=== PATIENT | male | born 1945 | race Caucasian/White ===

== ENCOUNTER 2019-01-09 06:02 | Emergency (ER) | payer OTHER ==
--- NOTE | 2019-01-09 06:05 | ER Report ---
History and Physical Time Seen By MD: 06:02 (NAI MERCER DO) HPI/ROS CHIEF COMPLAINT: Left flank pain HISTORY OF PRESENT ILLNESS: 74-year-old male purdy from [place] visiting [place] for a weekend. He has a known history of kidney stones. He has plans to see his urologist for retained stones that will undergo lithotripsy. Patient developed pain that began around midnight in his left flank with severe nausea but no vomiting. He describes waves of severe pain. Patient denies fever or chills. Patient notes 1 bout of loose stool. REVIEW OF SYSTEMS: Respiratory: No cough, no dyspnea. Cardiovascular: No chest pain, no palpitations. Gastrointestinal: As above Musculoskeletal: As above (NAI MERCER DO) Allergies: Coded Allergies: shellfish derived (Verified Allergy, Unknown, 01/09/19) Home Meds Active Scripts Granisetron Hcl (GRANISETRON HCL) 1 Mg Tablet, 1 MG PO Q6H, #14 Prov:SANDRA HORNER MD 01/09/19 Ketorolac Tromethamine (KETOROLAC TROMETHAMINE) 10 Mg Tab, 10 MG PO Q6H PRN for PAIN, #12 TAB 0 Refills Prov:SANDRA HORNER MD 01/09/19 Oxycodone Hcl/Acetaminophen (PERCOCET 5-325 MG TABLET) 1 Each Tablet, 1 EACH PO Q6H PRN for PAIN, #12 TAB 0 Refills Prov:SANDRA HORNER MD 01/09/19 Reported Medications Tamsulosin Hcl (FLOMAX) 0.4 Mg Cap.er.24h, 0.4 MG PO DAILY, CAP 01/09/19 Lisinopril (LISINOPRIL) 20 Mg Tablet, 20 MG PO QDAY, TAB 01/09/19 Reviewed Nurses Notes: Yes Old Medical Records Reviewed: Yes (NAI MERCER DO) Constitutional Vital Sign - Last 24 Hours 01/09/19 01/09/19 01/09/19 01/09/19 06:07 06:10 06:30 06:32 Temp 98.0 Pulse 58 62 Resp 18 B/P (MAP) 154/89 154/89 (110) 160/91 (114) Pulse Ox 88 94 O2 Delivery Room Air (SANDRA HORNER MD) Physical Exam General Appearance: The patient is alert, has no immediate need for airway protection and no current signs of toxicity. Moderate distress, slightly pale appearing, skin warm and dry, vital signs stable Eyes: Pupils equal and round no injection. Respiratory: Chest is non tender, lungs are clear to auscultation. Cardiac: regular rate and rhythm Gastrointestinal: Abdomen is soft and non tender, no masses, bowel sounds normal. Positive left CVA tenderness Musculoskeletal: Neck: Neck is supple and non tender. Extremities have full range of motion and are non tender. Skin: No rashes or lesions. DIFFERENTIAL DIAGNOSIS: After history and physical exam differential diagnosis was considered for flank pain including but not limited to musculoskeletal causes, kidney stone, pyelonephritis, shingles, and intra-abdominal causes such as diverticulitis and appendicitis. (NAI MERCER DO) Medical Decision Making Data Points Result Diagram: 01/09/19 0620 01/09/19 0620 Laboratory Hematology Test 01/09/19 06:05 01/09/19 06:20 Urine Color Yellow Urine Clarity Slightly-cloudy Urine pH 6.0 pH (4.8-9.5) Urine Specific [place] 1.021 Urine Protein Negative mg/dL (NEGATIVE) Urine Glucose (UA) Negative mg/dL (NEGATIVE) Urine Ketones Negative mg/dL (NEGATIVE) Urine Blood Moderate (NEGATIVE) Urine Nitrite Negative (NEGATIVE) Urine Bilirubin Negative (NEGATIVE) Urine Urobilinogen Negative mg/dL (0.2-1.9) Urine Leukocyte Esterase Negative (NEGATIVE) Urine RBC 85 /HPF (0-2/HPF) Urine WBC 1 /HPF (0-5/HPF) Urine Squamous Epithelial Cells Few /LPF (</=FEW) Urine Renal Epithelial Cells Few /LPF (NONE-FEW) Urine Bacteria Negative /HPF (NONE-FEW) Urine Mucus Few /HPF (NONE-FEW) Red Blood Count 5.15 M/uL (4.00-5.60) Mean Corpuscular Volume 80.7 fL (80.0-96.0) Mean Corpuscular Hemoglobin 26.6 pg (26.0-33.0) Mean Corpuscular Hemoglobin Concent 33.0 g/dL (32.0-36.0) Red Cell Distribution Width 15.4 % (11.5-14.5) Mean Platelet Volume 7.5 fL (7.2-11.1) Neutrophils (%) (Auto) 88.0 % (39.4-72.5) Lymphocytes (%) (Auto) 5.3 % (17.6-49.6) Monocytes (%) (Auto) 6.2 % (4.1-12.4) Eosinophils (%) (Auto) 0.2 % (0.4-6.7) Basophils (%) (Auto) 0.3 % (0.3-1.4) Nucleated RBC Relative Count (auto) 0.0 /100WBC Neutrophils # (Auto) 10.2 K/uL (2.0-7.4) Lymphocytes # (Auto) 0.6 K/uL (1.3-3.6) Monocytes # (Auto) 0.7 K/uL (0.3-1.0) Eosinophils # (Auto) 0.0 K/uL (0.0-0.5) Basophils # (Auto) 0.0 K/uL (0.0-0.1) Nucleated RBC Absolute Count (auto) 0.00 K/uL Sodium Level 137 mmol/L (137-145) Potassium Level 4.1 mmol/L (3.5-5.0) Chloride Level 104 mmol/L (98-107) Carbon Dioxide Level 23 mmol/L (22-30) Blood Urea Nitrogen 20 mg/dl (9-21) Creatinine 1.40 mg/dl (0.66-1.25) Glomerular Filtration Rate Calc 49.5 Random Glucose 134 mg/dl (75-110) Calcium Level 9.2 mg/dl (8.4-10.2) Total Bilirubin 0.5 mg/dl (0.2-1.3) Aspartate Amino Transf (AST/SGOT) 36 U/L (0-35) Alanine Aminotransferase (ALT/SGPT) 48 U/L (0-56) Alkaline Phosphatase 74 U/L (0-126) Total Protein 7.3 g/dl (6.3-8.2) Albumin 4.2 g/dl (3.5-5.0) Amylase Level 82 U/L (0-110) Lipase 83 U/L (23-300) Chemistry Test 01/09/19 06:05 01/09/19 06:20 Urine Color Yellow Urine Clarity Slightly-cloudy Urine pH 6.0 pH (4.8-9.5) Urine Specific [place] 1.021 Urine Protein Negative mg/dL (NEGATIVE) Urine Glucose (UA) Negative mg/dL (NEGATIVE) Urine Ketones Negative mg/dL (NEGATIVE) Urine Blood Moderate (NEGATIVE) Urine Nitrite Negative (NEGATIVE) Urine Bilirubin Negative (NEGATIVE) Urine Urobilinogen Negative mg/dL (0.2-1.9) Urine Leukocyte Esterase Negative (NEGATIVE) Urine RBC 85 /HPF (0-2/HPF) Urine WBC 1 /HPF (0-5/HPF) Urine Squamous Epithelial Cells Few /LPF (</=FEW) Urine Renal Epithelial Cells Few /LPF (NONE-FEW) Urine Bacteria Negative /HPF (NONE-FEW) Urine Mucus Few /HPF (NONE-FEW) White Blood Count 11.6 k/uL (4.5-11.0) Red Blood Count 5.15 M/uL (4.00-5.60) Hemoglobin 13.7 g/dL (14.0-18.0) Hematocrit 41.5 % (42.0-52.0) Mean Corpuscular Volume 80.7 fL (80.0-96.0) Mean Corpuscular Hemoglobin 26.6 pg (26.0-33.0) Mean Corpuscular Hemoglobin Concent 33.0 g/dL (32.0-36.0) Red Cell Distribution Width 15.4 % (11.5-14.5) Platelet Count 194 K/uL (150-450) Mean Platelet Volume 7.5 fL (7.2-11.1) Neutrophils (%) (Auto) 88.0 % (39.4-72.5) Lymphocytes (%) (Auto) 5.3 % (17.6-49.6) Monocytes (%) (Auto) 6.2 % (4.1-12.4) Eosinophils (%) (Auto) 0.2 % (0.4-6.7) Basophils (%) (Auto) 0.3 % (0.3-1.4) Nucleated RBC Relative Count (auto) 0.0 /100WBC Neutrophils # (Auto) 10.2 K/uL (2.0-7.4) Lymphocytes # (Auto) 0.6 K/uL (1.3-3.6) Monocytes # (Auto) 0.7 K/uL (0.3-1.0) Eosinophils # (Auto) 0.0 K/uL (0.0-0.5) Basophils # (Auto) 0.0 K/uL (0.0-0.1) Nucleated RBC Absolute Count (auto) 0.00 K/uL Glomerular Filtration Rate Calc 49.5 Calcium Level 9.2 mg/dl (8.4-10.2) Total Bilirubin 0.5 mg/dl (0.2-1.3) Aspartate Amino Transf (AST/SGOT) 36 U/L (0-35) Alanine Aminotransferase (ALT/SGPT) 48 U/L (0-56) Alkaline Phosphatase 74 U/L (0-126) Total Protein 7.3 g/dl (6.3-8.2) Albumin 4.2 g/dl (3.5-5.0) Amylase Level 82 U/L (0-110) Lipase 83 U/L (23-300) Urinalysis Test 01/09/19 06:05 Urine Color Yellow Urine Clarity Slightly-cloudy Urine pH 6.0 pH (4.8-9.5) Urine Specific [place] 1.021 Urine Protein Negative mg/dL (NEGATIVE) Urine Glucose (UA) Negative mg/dL (NEGATIVE) Urine Ketones Negative mg/dL (NEGATIVE) Urine Blood Moderate (NEGATIVE) Urine Nitrite Negative (NEGATIVE) Urine Bilirubin Negative (NEGATIVE) Urine Urobilinogen Negative mg/dL (0.2-1.9) Urine Leukocyte Esterase Negative (NEGATIVE) Urine RBC 85 /HPF (0-2/HPF) Urine WBC 1 /HPF (0-5/HPF) Urine Squamous Epithelial Cells Few /LPF (</=FEW) Urine Renal Epithelial Cells Few /LPF (NONE-FEW) Urine Bacteria Negative /HPF (NONE-FEW) Urine Mucus Few /HPF (NONE-FEW) (SANDRA HORNER MD) EKG/Imaging Imaging Results: CT scan of the abdomen and pelvis without contrast was obtained. The results of the study are CT of the abdomen and pelvis without contrast: Indication: Left flank pain. Technique: Helical CT was performed through the abdomen and pelvis without contrast. Multiplanar reconstructions are reviewed. One of the following dose optimization techniques was utilized in the performance of this exam: Automated exposure control; adjustment of the mA and/or kV according to the patient's size; or use of an iterative reconstruction technique. Specific details can be referenced in the facility's radiology CT exam operational policy. Comparison: None available. Lower lung godinez: No parenchymal or pleural abnormality is identified. Liver: Normal in size, shape, and density. Gallbladder/biliary tree: Multiple small opaque calculi are present in the lumen of the gallbladder. The gallbladder is not distended. The bile ducts are not dilated. Pancreas: Normal in size, shape, and density. Spleen: Normal in size, shape, and density. Adrenal glands: Within normal limits. Kidneys/urinary bladder: There is an obstructing calculus at the left ureterovesical junction, measuring approximately 11 mm in maximum dimension. Multiple additional tiny calculi are present in the distal left ureter. There is moderate dilatation of the left ureter and intrarenal collecting structures. At least one small nonobstructing calculus is present in the lower pole of the left kidney. The left kidney appears edematous with mild perinephric fluid. There are no signs of right intrarenal or ureteral calculi. There appear to be a few tiny cysts in the right kidney. There is a large number of calculi within the lumen of the bladder, measuring up to 13 mm in size. The bladder is otherwise unremarkable. Intestinal structures: There is mild diverticulosis in the distal colon. There are no signs of diverticulitis or obstruction. The intestinal structures are otherwise unremarkable, as visualized. Pelvis: The prostate appears enlarged, measuring approximately 6.0 cm in maximum dimension. There is a small, uncomplicated left inguinal hernia. Aorta and vascular structures: Within normal limits. Ascites or fluid collections: None seen. Skeletal structures: There are mild degenerative changes in the spine. No acute skeletal deformity is identified. Impression: There is an 11 mm obstructing calculus at the left ureterovesical junction. A large number of additional calculi are present in the distal left ureter and bladder lumen. The study was read by the radiologist. I viewed the images myself on the PACS system. (NAI MERCER DO) ED Course/Re-evaluation Clinical Indication for ER IV: Hydration, IV Access (NAI MERCER DO) ED Course 11 mm ureteral calculi. Still urinating. Pain controlled. Able to take PO. No evidence of infection. No fever/chills. Noted is some renal insufficiency, and I discussed this with the patient. I will discharge him with Percocet, Toradol, an d Zofran. He will follow up on Thursday with his surgeon in [place] Decision to Disposition Date: Jan 09, 2019 Decision to Disposition Time: 08:28 (SANDRA HORNER MD) Depart Departure Latest Vital Signs Vital Signs Date Time Temp Pulse Resp B/P (MAP) Pulse Ox O2 Delivery O2 Flow Rate FiO2 01/09/19 06:32 62 94 01/09/19 06:30 160/91 (114) 01/09/19 06:07 98.0 18 Room Air (SANDRA HORNER MD) Impression: Primary Impression: Ureteral calculus Condition: Improved Disposition: HOME OR SELF-CARE New Scripts Granisetron Hcl (GRANISETRON HCL) 1 Mg Tablet 1 MG PO Q6H, #14 Prov: SANDRA HORNER MD 01/09/19 Ketorolac Tromethamine (KETOROLAC TROMETHAMINE) 10 Mg Tab 10 MG PO Q6H PRN for PAIN, #12 TAB 0 Refills Prov: SANDRA HORNER MD 01/09/19 Oxycodone Hcl/Acetaminophen (PERCOCET 5-325 MG TABLET) 1 Each Tablet 1 EACH PO Q6H PRN for PAIN, #12 TAB 0 Refills Prov: SANDRA HORNER MD 01/09/19 Patient Instructions: Ureteral Stones (ED) Additional Instructions: DRINK 8 GLASSES OF WATER PER DAY ESPECIALLY WHILE TAKING NSAIDS FOR PAIN. NAI MERCER DO Jan 09, 2019 06:05 SANDRA HORNER MD Jan 09, 2019 08:34
[2019-01-09] MEDS ORDERED: NS(*) 0.9% 1000 ML BAG 1,000 ML IV ONE (06:13)
[2019-01-09] MEDS ORDERED: ONDANSETRON 4 MG/2 ML VIAL IVP ONE (06:15)
[2019-01-09] MEDS ORDERED: KETOROLAC 30 MG/ML VIAL IVP ONE (06:15)
[2019-01-09] MEDS ORDERED: HYDROMORPHONE HCL 1 MG/ML SYRINGE IVP ONE (06:15)
[2019-01-09] MEDS ORDERED: TAMS0.4C25 PO (06:19)
[2019-01-09] MEDS ORDERED: LISI20TA29 PO (06:19)
[2019-01-09 06:30] VITALS: BP 160/91
[2019-01-09 06:33] LABS: PLATELET COUNT, AUTOMATED 194 K/uL (150-450)
--- NOTE | 2019-01-09 07:28 | RADIOLOGY IMAGING REPORT ---
FACILITY: [facility] [place] PATIENT NAME: Abel Lopez : 1945 MR: [id number] V: [id number] EXAM DATE: ORDERING PHYSICIAN: NAI MERCER TECHNOLOGIST: Location: [facility] Patient: Abel Lopez : 1945 Visit/Account:[id number] Date of Sevice: 01/09/2019 CT of the abdomen and pelvis without contrast: Indication: Left flank pain. Technique: Helical CT was performed through the abdomen and pelvis without contrast. Multiplanar rec onstructions are reviewed. One of the following dose optimization techniques was utilized in the performance of this exam: Autom ated exposure control; adjustment of the mA and/or kV according to the patient's size; or use of an i terative reconstruction technique. Specific details can be referenced in the facility's radiology CT exam operational policy. Comparison: None available. Lower lung godinez: No parenchymal or pleural abnormality is identified. Liver: Normal in size, shape, and density. Gallbladder/biliary tree: Multiple small opaque calculi are present in the lumen of the gallbladder. The gallbladder is not distended. The bile ducts are not dilated. Pancreas: Normal in size, shape, and density. Spleen: Normal in size, shape, and density. Adrenal glands: Within normal limits. Kidneys/urinary bladder: There is an obstructing calculus at the left ureterovesical junction, measur ing approximately 11 mm in maximum dimension. Multiple additional tiny calculi are present in the dis arelis left ureter. There is moderate dilatation of the left ureter and intrarenal collecting structures . At least one small nonobstructing calculus is present in the lower pole of the left kidney. The lef t kidney appears edematous with mild perinephric fluid. There are no signs of right intrarenal or ureteral calculi. There appear to be a few tiny cysts in th e right kidney. There is a large number of calculi within the lumen of the bladder, measuring up to 13 mm in size. Th e bladder is otherwise unremarkable. Intestinal structures: There is mild diverticulosis in the distal colon. There are no signs of divert iculitis or obstruction. The intestinal structures are otherwise unremarkable, as visualized. Pelvis: The prostate appears enlarged, measuring approximately 6.0 cm in maximum dimension. There is a small, uncomplicated left inguinal hernia. Aorta and vascular structures: Within normal limits. Ascites or fluid collections: None seen. Skeletal structures: There are mild degenerative changes in the spine. No acute skeletal deformity is identified. Impression: There is an 11 mm obstructing calculus at the left ureterovesical junction. A large numbe r of additional calculi are present in the distal left ureter and bladder lumen. Report Dictated By: Vinayak Fregoso MD at 01/09/2019 7:05 AM Report E-Signed By: Vinayak Fregoso MD at 01/09/2019 7:22 AM WSN:[id number]
[2019-01-09] MEDS ORDERED: GRAN1TAB PO (08:33)
[2019-01-09] MEDS ORDERED: OXYC-865 PO (08:33)
[2019-01-09] MEDS ORDERED: KET10 PO (08:33)
== END 2019-01-09 08:50 | disposition home or self-care (01) ==
LOC: ER 06:17
DX: N20.1 Calculus of ureter (principal); Z79.899 Other long term (current) drug therapy
CPT/HCPCS: 74176; 81001; 82150; 83690; 85025; 96361; 96374; 99284; J1170; J1885; J2405; J7030; 82040; 82247; 82310; 82374; 82435; 82565; 82947; 84075; 84132; 84155; 84295; 84450; 84460; 84520